=== PATIENT | male | born 1985 | race Caucasian/White ===

== ENCOUNTER 2017-05-29 23:55 | Emergency (ER) | payer BC, OTHER ==
[~2017-05-29] VITALS: Ht 185.4 cm; Wt 91.0 kg
[~2017-05-29 23:55] MED LIST: DOXY100T PO; LANTUSP SQ; LORC10TA PO; NOVOLOGP2 SQ; SULF1TAB47 PO
[2017-05-29 23:58] VITALS: BP 119/64; PULSE 74; RESP 20; TEMP 98.1; O2SAT 98
[2017-05-30] MEDS ORDERED: SUBO8MIS SL (00:11)
[2017-05-30] MEDS ORDERED: NOVORP2 SQ (00:11)
--- NOTE | 2017-05-30 00:17 | PD ---
HPI Chief Complaint: Chest Pain Time Seen by Provider: 00:09 Travel History International Travel<30 days: No Contact w/Intl Traveler<30days: No Traveled to known affect area: No History of Present Illness HPI Patient is a 32-year-old male who presents to emergency room for medical clearance. Patient reports that he is a DM1 on insulin. Reports that he had 3 double cheeseburgers at [employer] today and couldn't find his glucometer to check his blood sugar. Reports that he "estimated his blood sugar to be 200" and gave himself insulin based on that as he has insulin pump. Reports that shortly thereafter, he was arrested. Patient reports that he began to feel hypoglycemic and thinks that he may have given himself too much insulin. BG here 201. Reports "I think I may be in DKA." Patient reports that he has been having palpitations and irregular heart rate. Reports that this happens every time he is in DKA and has hypoglycemia. Patient denies any chest pain at this time, denies shortness of breath. Reports that he is extremity anxious as he just got out of [facility] yesterday and was arrested again today. PFSH Past Medical History Autoimmune Disease: No Blood Disorders: No Cancer: No Cardiovascular Problems: No Diabetes: Yes Patient Takes Glucophage: No Diminished Hearing: No Endocrine: No Gastrointestinal Disorders: No Genitourinary: No Headaches: Yes (BRAIN SURGERY IN 2003.) Musculoskeletal: Yes (CHRONIC BACK PAIN) Neurologic: Yes (head injury, headaches) Psychiatric: No Respiratory: No Tetanus Vaccination: Unknown Past Surgical History Abdominal Surgery: No Cardiac Surgery: No Ear Surgery: No Endocrine Surgery: No Eye Surgery: No Genitourinary Surgery: No Gynecologic Surgery: No Neurologic Surgery: Yes (EVACUATION OF SDH (2003)) Oral Surgery: No Thoracic Surgery: No Other Surgery: Yes Social History Alcohol Use: No Tobacco Use: Yes (1/2 PK PER DAY) Substance Use: No Allergies-Medications (Allergen,Severity, Reaction): Coded Allergies: Penicillin (Verified Allergy, Unknown, RASH, 04/19/09) Reported Meds & Prescriptions Reported Meds & Active Scripts Active Reported Suboxone Sublingual Film (Buprenorphine-Naloxone Sublingual Film) 8-2 Mg Film 1 Film SL Unique ID number required: Novolin R Inj (Insulin Human Regular) 1,000 Unit/10 Ml Vial 0 SQ DIRECTED Sliding Scale As Directed. Review of Systems General / Constitutional: No: Fever Eyes: No: Visual changes HENT: No: Headaches Cardiovascular: Positive: Palpitations, No: Chest Pain or Discomfort Respiratory: No: Shortness of Breath Gastrointestinal: No: Abdominal Pain Genitourinary: No: Dysuria Musculoskeletal: No: Pain Skin: No Rash Neurologic: No: Weakness Psychiatric: Positive: Anxiety, No: Depression Endocrine: No: Polydipsia Hematologic/Lymphatic: No: Easy Bruising Physical Exam Narrative GENERAL: Mild distress SKIN: Focused skin assessment warm/dry. HEAD: Atraumatic. Normocephalic. EYES: Pupils equal and round. No scleral icterus. No injection or drainage. ENT: No nasal bleeding or discharge. Mucous membranes pink and moist. NECK: Trachea midline. No JVD. CARDIOVASCULAR: Regular rate and rhythm. No murmur appreciated. RESPIRATORY: No accessory muscle use. Clear to auscultation. Breath sounds equal bilaterally. GASTROINTESTINAL: Abdomen soft, non-tender, nondistended. Hepatic and splenic margins not palpable. MUSCULOSKELETAL: No obvious deformities. No clubbing. No cyanosis. No edema. NEUROLOGICAL: Awake and alert. No obvious cranial nerve deficits. Motor grossly within normal limits. Normal speech. PSYCHIATRIC: Patient extremely anxious on exam Data Data Last Documented VS Vital Signs Date Time Temp Pulse Resp B/P Pulse Ox O2 Delivery O2 Flow Rate FiO2 05/29/17 23:58 98.1 74 20 119/64 98 Orders Basic Metabolic Panel (Bmp) (05/30/17 00:09) Chest, Single Ap (05/30/17 00:09) Electrocardiogram (05/30/17 ) Blood Glucose (05/30/17 00:09) Labs Laboratory Tests Test 05/30/17 00:10 Sodium Level 138 MEQ/L Potassium Level 3.7 MEQ/L Chloride Level 104 MEQ/L Carbon Dioxide Level 26.3 MEQ/L Anion Gap 8 MEQ/L Blood Urea Nitrogen 14 MG/DL Creatinine 1.07 MG/DL Estimat Glomerular Filtration 80 ML/MIN Rate Random Glucose 200 MG/DL Calcium Level 9.0 MG/DL MDM Medical Decision Making Medical Screen Exam Complete: Yes Emergency Medical Condition: Yes Interpretation(s) EKG at 0002: NSR at 65bpm, qt/qtc: 402/413, no acute st or t wave changes Vital Signs Date Time Temp Pulse Resp B/P Pulse Ox O2 Delivery O2 Flow Rate FiO2 05/29/17 23:58 98.1 74 20 119/64 98 Differential Diagnosis Differential includes hypoglycemia, electrolyte abnormality, ACS, arrhythmia, anxiety reaction Narrative Course 32-year-old male with history of type 1 diabetes, presents to emergency room for evaluation of possible hypoglycemic episode versus DKA. Patient reports that he could not find his glucometer and gave himself insulin based on a ballpark number of 200. Reports that he feels hypoglycemic. Patient reports that when he feels this way, he has palpitations. Patient also concerned that he may be in DKA. Blood sugar here is 202 Patient is extremely anxious in the emergency room as he has been arrested for the second time this week. EKG NSR with no acute st or t wave changes. BMP and chest xray ordered CBC & BMP Diagram 05/30/17 00:10 xray of chest with no acute abnormalities. BS 200, patient not in DKA Patient will be discharged to home with outpatient follow up Diagnosis Primary Impression: Heart palpitations Additional Impression: Hyperglycemia Patient Instructions: General Instructions Additional Instructions: Please follow up with your primary care doctor Return to ER if symptoms worsen or persist Return to ER as needed Disposition: 01 DISCHARGE HOME Condition: Stable Cornelia Ramirez DO May 30, 2017 00:17
[2017-05-30 00:45] VITALS: BP 128/74; PULSE 86; RESP 18; O2SAT 99
[2017-05-30 01:01] LABS: BICARBONATE 26.3 MEQ/L (21.0-32.0); POTASSIUM 3.7 MEQ/L (3.5-5.1)
--- NOTE | 2017-05-30 01:17 | RADRPT ---
EXAM DATE/TIME: 05/30/2017 00:32 [facility] COMPARISON: No previous studies available for comparison. INDICATIONS : Heart palpitations. MEDICAL HISTORY : Diabetes mellitus type I. SURGICAL HISTORY : None. ENCOUNTER: Initial ACUITY: 1 day PAIN SCORE: 8/10 LOCATION: Left chest FINDINGS: A single view of the chest demonstrates the lungs to be symmetrically aerated without evidence of mas s, infiltrate or effusion. The cardiomediastinal contours are unremarkable. Osseous structures are intact. CONCLUSION: 1. No acute cardiopulmonary disease. Kapil Cruz MD on May 30, 2017 at 1:16 Board Certified Radiologist. This report was verified electronically.
[2017-05-30 01:43] VITALS: BP 123/72; PULSE 92; RESP 18; O2SAT 98
[2017-05-30] MEDS ORDERED: DEXTROSE 50% IN WATER 50 ML VIAL(D50) IV PUSH ONE (02:30)
[2017-05-30 03:38] VITALS: BP 117/69
--- NOTE | 2017-06-01 18:14 | EKG ---
Date Performed: 05/30/2017 Time Performed: 00:02:48 PTAGE: 32 years EKG: Sinus rhythm NORMAL ECG NO PREVIOUS TRACING DOCTOR: Rubin Pond Interpretating Date/Time 06/01/2017 18:11:23
== END 2017-05-30 03:51 | disposition home or self-care (01) ==
LOC: NEPC 23:55
DX: R00.2 Palpitations (principal); E10.65 Type 1 diabetes mellitus with hyperglycemia; Z79.4 Long term (current) use of insulin; Z96.41 Presence of insulin pump (external) (internal)
CPT/HCPCS: 71010; 80048; 93005; 96374